=== PATIENT | female | born 1990 | race Caucasian/White ===

== ENCOUNTER 2020-02-24 23:12 | Inpatient (IN) | payer BC ==
[~2020-02-24] VITALS: Ht 175.3 cm; Wt 89.0 kg
[2020-02-24] MEDS ORDERED: OXYTOCIN 30U/ 0.9% NaCL 500ML 500 ML IV PRN (23:36)
[2020-02-24] MEDS ORDERED: D5%-LACTATED RINGERS 1,000 ML IV SCH (23:36)
[2020-02-24] MEDS ORDERED: OXYTOCIN 30U/ 0.9% NaCL 500ML 500 ML IV ONE (23:36)
[2020-02-24] MEDS ORDERED: LACTATED RINGERS 1,000 ML IV SCH (23:36)
[2020-02-24] MEDS: LACTATED RINGERS 1,000 ML IVBOLUS PRN (23:45)
[2020-02-24] MEDS ORDERED: FENTANYL/BUPIV./NS/PF 250 ML EPIDCONT SCH (23:59)
[2020-02-24] MEDS ORDERED: FENTANYL PF 100 MCG/2ML ONE (23:59)
[2020-02-25] MEDS ORDERED: FENTANYL PF 100 MCG/2ML IV PRN
[2020-02-25] MEDS ORDERED: TERBUTALINE 1 MG/ML, 1ML SQ PRN
[2020-02-25] MEDS ORDERED: FENTANYL PF 100 MCG/2ML IVPush PRN
[2020-02-25] MEDS ORDERED: METOCLOPRAMIDE 5 MG/ML, 2ML IVPush PRN
[2020-02-25] MEDS ORDERED: TERBUTALINE 1 MG/ML, 1ML IVPush PRN
[2020-02-25] MEDS ORDERED: SODIUM CITRATE/CITRIC ACID 30 ML UDC PO PRN
[2020-02-25] MEDS ORDERED: DIPHENHYDRAMINE 50 MG/ML, 1ML IVPush PRN
[2020-02-25] MEDS ORDERED: NEWBORN KIT ONE (00:08)
[2020-02-25 00:14] LABS: MEAN CORPUSCULAR HEMOGLOBIN 31.7 pg (27.0-34.8); MEAN CORPUSCULAR HGB CONC 33.2 g/dL (32.4-35.8); MEAN CORPUSCULAR VOLUME 95.4 fL (80-100); MEAN PLATELET VOLUME 10.3 fL (7.4-10.4); PLATELET COUNT 207 x10^3/uL (130-400); RED BLOOD COUNT 3.88 x10^6/uL (3.82-5.3); RED CELL DISTRIBUTION WIDTH 13.1 % (9.6-15.2)
[2020-02-25] MEDS: LACTATED RINGERS 1,000 ML IVBOLUS PRN (00:30)
[2020-02-25] MEDS ORDERED: FENTANYL PF 500 MCG, BUPIVACAINE/PF 0.5%, 30ML 62.5 ML in SODIUM CHLORIDE 0.9% 177.5 ML EPIDCONT SCH (00:30)
[2020-02-25 00:39] LABS: BASOPHILS # (AUTO) 0.01 x10^3/uL (0-0.1); BASOPHILS % (AUTO) 0 % (0-1); EOSINOPHILS # (AUTO) 0.04 x10^3/uL (0-0.4); EOSINOPHILS % (AUTO) 0 % (1-7); LYMPHOCYTES # (AUTO) 1.74 x10^3/uL (1-3.4); LYMPHOCYTES % (AUTO) 9 % (22-44); MD SCAN; MONOCYTES # (AUTO) 0.47 x10^3/uL (0.2-0.8); MONOCYTES % (AUTO) 2 % (2-9); NEUTROPHILS # (AUTO) 17.65 x10^3/uL (1.8-6.8); NEUTROPHILS % (AUTO) 89 % (42-75)
[2020-02-25] MEDS ORDERED: LACTATED RINGERS 1,000 ML IV SCH ×2 (00:55→08:09)
[2020-02-25] MEDS ORDERED: FENTANYL/BUPIV./NS/PF 250 ML EPIDCONT SCH (00:55)
[2020-02-25] MEDS ORDERED: BUPIVACAINE 0.25% ONE ×2 (00:58→01:01)
[2020-02-25] MEDS ORDERED: NALOXONE 0.4 MG/ML, 1ML IVPush PRN (01:00)
[2020-02-25] MEDS ORDERED: LACTATED RINGERS 1,000 ML IVBOLUS PRN (01:00)
[2020-02-25] MEDS ORDERED: EPHEDRINE 50 MG/ML, 1ML IVPush PRN ×3 (01:00→10:00)
[2020-02-25] MEDS ORDERED: FENTANYL/BUPIV./NS/PF 250 ML EPIDCONT ONE (01:01)
[2020-02-25] MEDS ORDERED: EPHEDRINE 50 MG/ML, 1ML ONE (02:17)
[2020-02-25] MEDS: LACTATED RINGERS 1,000 ML IV SCH ×4 (03:48→16:09)
[2020-02-25] MEDS ORDERED: LIDOCAINE 1%, 20ML ONE (05:24)
[2020-02-25] MEDS ORDERED: MISOPROSTOL 200 MCG TABLET ONE ×2 (05:25→08:00)
[2020-02-25] MEDS ORDERED: OXYTOCIN 30U/ 0.9% NaCL 500ML 500 ML ONE (05:25)
[2020-02-25] MEDS ORDERED: OXYTOCIN 30U/ 0.9% NaCL 500ML 500 ML IV PRN (06:04)
[2020-02-25] MEDS ORDERED: TERBUTALINE 1 MG/ML, 1ML SQ STA (07:20)
[2020-02-25] MEDS ORDERED: TERBUTALINE 1 MG/ML, 1ML ONE (07:21)
[2020-02-25] MEDS ORDERED: LIDOCAINE/MPF 2%-EPI 1:200K, 20 ML ONE (07:24)
[2020-02-25] MEDS ORDERED: METHYLERGONOVINE 0.2 MG/ML IM ONE (07:25)
[2020-02-25] MEDS ORDERED: morphine SULFATE/PF 0.5 MG/ML, 10ML ONE (07:39)
[2020-02-25] MEDS ORDERED: MIDAZOLAM 1 MG/ML, 2ML ONE (07:40)
[2020-02-25] MEDS ORDERED: CARBOPROST TROMETHAMINE 250 MCG/ML, 1ML IM ONE (08:00)
[2020-02-25] MEDS ORDERED: MISOPROSTOL 200 MCG TABLET PR ONE (08:00)
[2020-02-25] MEDS: OXYTOCIN 30U/ 0.9% NaCL 500ML 500 ML IV SCH ×2 (08:09→18:09)
[2020-02-25] MEDS ORDERED: ONDANSETRON 2MG/ML, 2ML IV PRN (08:30)
[2020-02-25] MEDS ORDERED: ACETAMINOPHEN 325 MG TABLET PO PRN (08:30)
[2020-02-25] MEDS ORDERED: GLYCERIN ADULT SUPP PR PRN (08:30)
[2020-02-25] MEDS: KETOROLAC 30 MG/1 ML IV SCH ×3 (08:30→20:32)
[2020-02-25] MEDS ORDERED: CARBOPROST TROMETHAMINE 250 MCG/ML, 1ML IM PRN (08:30)
[2020-02-25] MEDS ORDERED: OXYcodone/APAP 5/325MG TABLET PO PRN (08:30)
[2020-02-25] MEDS ORDERED: METOCLOPRAMIDE 5 MG/ML, 2ML IV PRN (08:30)
[2020-02-25] MEDS ORDERED: BISACODYL 10 MG SUPP PR PRN (08:30)
[2020-02-25] MEDS: PRENATAL VIT/IRON/FA 1 EACH TABLET PO SCH (09:00)
[2020-02-25] MEDS ORDERED: morphine SULFATE 10 MG/ML, 1ML IVPush PRN (10:00)
[2020-02-25] MEDS ORDERED: NO SEDATIVES, TRANQUILIZERS OR ANTIEMETICS XX SCH (10:00)
[2020-02-25] MEDS ORDERED: ONDANSETRON 2MG/ML, 2ML IVPush PRN ×2 (10:00)
[2020-02-25] MEDS ORDERED: NALOXONE 0.4 MG/ML, 1ML IV PRN ×2 (10:00)
[2020-02-25 11:00] VITALS: BP 111/59
[2020-02-25] MEDS ORDERED: CEFAZOLIN 1,000 MG ONE (11:41)
[2020-02-25] MEDS ORDERED: KETOROLAC 30 MG/1 ML ONE (11:41)
[2020-02-25] MEDS ORDERED: DEXAMETHASONE 4 MG/ML, 1ML ONE (11:41)
[2020-02-25] MEDS ORDERED: ONDANSETRON 2MG/ML, 2ML ONE (11:41)
[2020-02-25] MEDS ORDERED: OXYTOCIN 10 UNITS/ML, 1ML ONE (11:41)
[2020-02-25] MEDS ORDERED: WATER-INJECTION,STERILE 10 ML IV ONE (11:41)
[2020-02-25] MEDS ORDERED: KETOROLAC 30 MG/1 ML IVPush SCH (14:00)
[2020-02-25 15:22] LABS: MEAN CORPUSCULAR HEMOGLOBIN 32.1 pg (27.0-34.8); MEAN CORPUSCULAR VOLUME 94.4 fL (80-100); MEAN PLATELET VOLUME 10.5 fL (7.4-10.4); PLATELET COUNT 200 x10^3/uL (130-400); RED BLOOD COUNT 3.63 x10^6/uL (3.82-5.3); RED CELL DISTRIBUTION WIDTH 13.1 % (9.6-15.2)
[2020-02-25 15:36] LABS: MD YES
[2020-02-25 16:44] LABS: <PLATELET ESTIMATE> ADEQUATE; <RBC MORPHOLOGY> NORMAL; BAND#(MANUAL) 2.07 x10^3/uL; BANDS%(MANUAL) 9 % (0-7); LARGE PLATELETS 1+; LYMPH#(MANUAL) 0.92 x10^3/uL (1-3.4); LYMPHS% (MANUAL) 4 % (22-44); MONOS#(MANUAL) 0.92 x10^3/uL (0.3-2.7); MONOS% (MANUAL) 4 % (2-9); SEG#(MANUAL) 19.09 x10^3/uL (1.8-6.8); SEGS% (MANUAL) 83 % (42-75)
[2020-02-25 17:00] VITALS: BP 115/64
[2020-02-25 20:00] VITALS: BP 124/80
[2020-02-25] MEDS: DOCUSATE 100 MG CAPSULE PO PRN (20:28)
[2020-02-26] VITALS: BP 112/72
[2020-02-26] MEDS: LACTATED RINGERS 1,000 ML IV SCH ×3 (00:09→14:34)
[2020-02-26] MEDS: KETOROLAC 30 MG/1 ML IV SCH ×4 (02:25→20:30)
[2020-02-26] MEDS: OXYTOCIN 30U/ 0.9% NaCL 500ML 500 ML IV SCH ×2 (04:09→14:09)
[2020-02-26 05:10] VITALS: BP 111/75
[2020-02-26] MEDS: PRENATAL VIT/IRON/FA 1 EACH TABLET PO SCH (08:25)
[2020-02-26] MEDS: DOCUSATE 100 MG CAPSULE PO PRN ×2 (08:25→20:58)
[2020-02-26 08:29] VITALS: BP 114/78
[2020-02-26 20:15] VITALS: BP 135/82
[2020-02-26] MEDS: IBUPROFEN 600 MG TABLET PO PRN (20:55)
[2020-02-26] MEDS: SIMETHICONE 80 MG CHEW TAB PO PRN (22:29)
[2020-02-26] MEDS: OXYcodone/APAP 5/325MG TABLET PO PRN (22:32)
[2020-02-27 00:05] VITALS: BP 121/72
[2020-02-27] MEDS: OXYTOCIN 30U/ 0.9% NaCL 500ML 500 ML IV SCH (00:09)
[2020-02-27] MEDS: LACTATED RINGERS 1,000 ML IV SCH ×2 (00:09→08:09)
[2020-02-27] MEDS: KETOROLAC 30 MG/1 ML IV SCH (02:30)
[2020-02-27] MEDS: IBUPROFEN 600 MG TABLET PO PRN ×2 (04:14→11:16)
[2020-02-27] MEDS: OXYcodone/APAP 5/325MG TABLET PO PRN ×4 (04:15→13:49)
[2020-02-27 07:40] VITALS: BP 110/73
[2020-02-27] MEDS ORDERED: IBUPROFEN 600 MG TABLET PO PRN (08:30)
[2020-02-27] MEDS ORDERED: IBUPROFEN 800 MG TABLET PO PRN (08:30)
[2020-02-27] MEDS: SIMETHICONE 80 MG CHEW TAB PO PRN ×2 (08:41→13:49)
[2020-02-27] MEDS: DOCUSATE 100 MG CAPSULE PO PRN (08:41)
[2020-02-27] MEDS: PRENATAL VIT/IRON/FA 1 EACH TABLET PO SCH (08:43)
== END 2020-02-27 14:55 | disposition home or self-care (01) | DRG 788 ==
LOC: LDOP 23:12 → LDIP 23:40 → 2NW 02-25 11:06
PROVIDERS: ADMIT Student in an Organized Health Care Education/Training Program; ATTEND Student in an Organized Health Care Education/Training Program
PROC: 10D00Z1 Extraction of Products of Conception, Low, Open Approach (ICD-10-PCS; principal; 2020-02-25)
DX: O76 Abnormality in fetal heart rate and rhythm complicating labor and delivery (principal); Z37.0 Single live birth; Z3A.39 39 weeks gestation of pregnancy
CPT/HCPCS: 36415; J7121; S0020; 82803; 85025; 86592; 86850; 86900; G0378; J0690; J1100; J1885; J2250; J2274; J2405; J3010; J3490; J2210; J2590; J3105; J7050; J7120

== ENCOUNTER 2021-07-21 13:58 | Inpatient (IN) | payer BC ==
[~2021-07-21] VITALS: Ht 172.7 cm; Wt 91.3 kg
[2021-07-21 14:11] VITALS: BP 133/87
[2021-07-21] MEDS ORDERED: FENTANYL PF 100 MCG/2ML IVPush PRN (14:30)
[2021-07-21] MEDS: D5%-LACTATED RINGERS 1,000 ML IV SCH ×2 (14:30→22:30)
[2021-07-21] MEDS ORDERED: OXYTOCIN 30U/ 0.9% NaCL 500ML 500 ML IV ONE (14:30)
[2021-07-21] MEDS ORDERED: CALCIUM CARBONATE 500 MG TAB.CHEW PO PRN (14:30)
[2021-07-21] MEDS ORDERED: TERBUTALINE 1 MG/ML, 1ML IVPush PRN (14:30)
[2021-07-21] MEDS ORDERED: SODIUM CITRATE/CITRIC ACID 30 ML UDC PO PRN (14:30)
[2021-07-21] MEDS ORDERED: TERBUTALINE 1 MG/ML, 1ML SQ PRN (14:30)
[2021-07-21] MEDS ORDERED: ONDANSETRON 2MG/ML, 2ML IVPush PRN (14:30)
[2021-07-21] MEDS ORDERED: FENTANYL PF 100 MCG/2ML IV PRN (14:30)
[2021-07-21] MEDS ORDERED: METOCLOPRAMIDE 5 MG/ML, 2ML IVPush PRN (14:30)
[2021-07-21] MEDS ORDERED: MISOPROSTOL 200 MCG TABLET ONE (14:37)
[2021-07-21] MEDS ORDERED: OXYTOCIN 30U/ 0.9% NaCL 500ML 0 ML ONE (14:37)
[2021-07-21] MEDS ORDERED: LIDOCAINE 1%, 20ML ONE (14:37)
[2021-07-21 15:15] LABS: BASOPHILS % (AUTO) 0 % (0-1); EOSINOPHILS % (AUTO) 0 % (1-7); LYMPHOCYTES % (AUTO) 13 % (22-44); MEAN CORPUSCULAR HEMOGLOBIN 30.6 pg (27.0-34.8); MEAN CORPUSCULAR HGB CONC 33.5 g/dL (32.4-35.8); MEAN PLATELET VOLUME 11.6 fL (7.4-10.4); MONOCYTES % (AUTO) 4 % (2-9); NEUTROPHILS % (AUTO) 83 % (42-75); PLATELET COUNT 169 x10^3/uL (130-400); RED CELL DISTRIBUTION WIDTH 13.9 % (9.6-15.2)
[2021-07-21] MEDS: LACTATED RINGERS 1,000 ML IV SCH ×3 (15:15→22:30)
[2021-07-21] MEDS ORDERED: BUPIVACAINE 0.25% ONE (15:49)
[2021-07-21] MEDS ORDERED: FENTANYL/BUPIV./NS/PF 250 ML EPIDCONT ONE (15:49)
[2021-07-21] MEDS ORDERED: LACTATED RINGERS 1,000 ML IVBOLUS PRN (16:00)
[2021-07-21] MEDS ORDERED: EPHEDRINE 50 MG/ML, 1ML IVPush PRN (16:00)
[2021-07-21] MEDS ORDERED: NALOXONE 0.4 MG/ML, 1ML IVPush PRN (16:00)
[2021-07-21] MEDS ORDERED: FENTANYL/BUPIV./NS/PF 250 ML EPIDCONT SCH (16:00)
[2021-07-21] MEDS ORDERED: IBUPROFEN 600 MG TABLET ONE ×2 (18:45→21:58)
[2021-07-21] MEDS ORDERED: NEWBORN KIT ONE (19:24)
[2021-07-21 19:42] LABS: AMPHETAMINE SCREEN, URINE Negative (Negative); BARBITURATE SCREEN, URINE Negative (Negative); BENZODIAZEPINE SCREEN, URINE Negative (Negative); CANNABINOID SCREEN, URINE Positive (Negative); COCAINE SCREEN, URINE Negative (Negative); METHADONE SCREEN, URINE Negative (Negative); OPIATE SCREEN, URINE Negative (Negative)
[2021-07-21] MEDS ORDERED: PREN1TAB10 PO (20:48)
[2021-07-21 21:15] VITALS: BP 123/80
[2021-07-21] MEDS: IBUPROFEN 600 MG TABLET PO PRN (22:00)
[2021-07-21 23:59] VITALS: BP 141/88
[2021-07-22] MEDS: LACTATED RINGERS 1,000 ML IV SCH
[2021-07-22 03:22] LABS: BASOPHILS % (AUTO) 0 % (0-1); EOSINOPHILS % (AUTO) 0 % (1-7); LYMPHOCYTES % (AUTO) 11 % (22-44); MEAN CORPUSCULAR HEMOGLOBIN 31.2 pg (27.0-34.8); MEAN PLATELET VOLUME 11.8 fL (7.4-10.4); MONOCYTES % (AUTO) 4 % (2-9); NEUTROPHILS % (AUTO) 85 % (42-75); PLATELET COUNT 152 x10^3/uL (130-400); RED BLOOD COUNT 3.47 x10^6/uL (3.82-5.3); RED CELL DISTRIBUTION WIDTH 14.2 % (9.6-15.2)
[2021-07-22] MEDS ORDERED: DOCUSATE 100 MG CAPSULE PO PRN (04:00)
[2021-07-22] MEDS ORDERED: OXYcodone/APAP 5/325MG TABLET PO PRN ×2 (04:00)
[2021-07-22] MEDS ORDERED: OXYTOCIN 30U/ 0.9% NaCL 500ML 500 ML IV SCH (04:00)
[2021-07-22] MEDS ORDERED: MISOPROSTOL 200 MCG TABLET PR PRN (04:00)
[2021-07-22] MEDS ORDERED: CALCIUM CARBONATE 500 MG TAB.CHEW PO PRN (04:00)
[2021-07-22] MEDS ORDERED: SIMETHICONE 80 MG CHEW TAB PO PRN (04:00)
[2021-07-22] MEDS ORDERED: ONDANSETRON 2MG/ML, 2ML IV PRN (04:00)
[2021-07-22 04:35] VITALS: BP 136/84
[2021-07-22] MEDS: IBUPROFEN 600 MG TABLET PO PRN ×2 (07:24→14:59)
[2021-07-22 08:00] VITALS: BP 133/88
[2021-07-22] MEDS ORDERED: PRENATAL VIT/IRON/FA 1 EACH TABLET PO SCH (09:00)
[2021-07-22 13:04] VITALS: BP 143/87
[2021-07-22] MEDS ORDERED: DOCU-131 PO (14:52)
[2021-07-22] MEDS ORDERED: IBUP-1223 PO (14:52)
== END 2021-07-22 18:45 | disposition home or self-care (01) | DRG 807 ==
LOC: LDOP 13:58 → LDIP 14:28 → 2NW 21:08
PROVIDERS: ADMIT Student in an Organized Health Care Education/Training Program; ATTEND Student in an Organized Health Care Education/Training Program
PROC: 10E0XZZ Delivery of Products of Conception, External Approach (ICD-10-PCS; principal; 2021-07-21)
PROC: 3E0R3BZ Introduction of Anesthetic Agent into Spinal Canal, Percutaneous Approach (ICD-10-PCS; 2021-07-21)
PROC: 00HU33Z Insertion of Infusion Device into Spinal Canal, Percutaneous Approach (ICD-10-PCS; 2021-07-21)
DX: O34.211 Maternal care for low transverse scar from previous cesarean delivery (principal); Z37.0 Single live birth; J45.909 Unspecified asthma, uncomplicated; O99.52 Diseases of the respiratory system complicating childbirth; Z20.822 Contact with and (suspected) exposure to COVID-19; Z3A.39 39 weeks gestation of pregnancy
CPT/HCPCS: 36415; 80307; 85025; 86592; 86850; 86900; 87635; G0378; J7120